=== PATIENT | male | born 1975 | race Caucasian/White ===

== ENCOUNTER 2018-03-27 17:28 | Emergency (ER) | payer OTHER ==
[~2018-03-27] VITALS: Ht 175.3 cm; Wt 76.7 kg
[~2018-03-27 17:28] MED LIST: HYDACE5 PO; IBUP600 PO; LOSA25 PO; OMEP20ER PO; PROM25 PO; [UNRECOGNIZED DRUG - OTHER] PO
[2018-03-27] MEDS ORDERED: LOSARTAN-HCTZ1 EAC1 PO (17:41)
[2018-03-27] MEDS ORDERED: Cyclobenzaprine5 MG PO (17:41)
[2018-03-27] MEDS ORDERED: PARO20 PO (17:41)
[2018-03-27] MEDS ORDERED: Prednisone10 MG PO (18:08)
== END 2018-03-27 18:12 | disposition home or self-care (01) ==
LOC: ER 17:28
DX: G56.02 Carpal tunnel syndrome, left upper limb (principal); Z88.0 Allergy status to penicillin; Z79.899 Other long term (current) drug therapy; I10 Essential (primary) hypertension
CPT/HCPCS: 99283

== ENCOUNTER 2019-01-23 10:43 | Day surgery (SDC) | payer OTHER ==
[~2019-01-23] VITALS: Ht 172.7 cm; Wt 83.6 kg
[~2019-01-23 10:43] MED LIST changes: +Amlodipine Besy10 MG; +Cyclobenzaprine5 MG PO; +ESCI20 PO; +Flexeril5 MG PO; +LOSARTAN-HCTZ1 EAC1 PO; +OMEPRAZOLE20 MG PO; +PARO20 PO; +Prednisone10 MG PO
--- NOTE | 2019-01-23 15:11 | NUR ---
01/23/19 1511 Camila Armenta LATE ENTRY FOR TODAY DURING PROCEDURE PATIENT GIVEN 1ST DOSE OF 40MG PROPOFOL AND PATIENT STARTED TWITCHING, 2ND DOSE OF 40MG PROPOFOL GIVEN, TWITCHING/LEG JERKING CONTINUED, 3RD DOSE OF 20MG PROPOFOL GIVEN AND PATIENT CONTINUES TO TWITCH AND JERK BOTH ARMS AND LEGS, ARCHES BACK. RN BEGAN TO REBOLUS PATIENT WITH 40MG PROPOFOL REQUESTS 2MG VERSED IV. 2MG VERSED IV GIVEN. PATIENT CONTINUES TO TWITCH, ARCH HIS BACK, AND KICK HIS LEGS. DR. SINGH STARTS EGD AND GETS TO THE PATIENTS STOMACH WHEN THE PATIENT STARTS TO OBSTRUCT. DR. SINGH REMOVED SCOPE, PATIENT HAD ALSO RECEIVED ANOTHER DOSE OF PROPOFOL 40MG. PATIENT THEN BEGINS TO HAVE LARYNGOSPASMS, 100MG LIDOCAINE 2% IV GIVEN. NO CHANGE IN LARYNGOSPASMS. RN CALLED OUT FOR ANESTHESIA TO HELP. DR. ROSE AND CODI RN INTO ROOM, NONREBREATHER MASK PLACED ON PATIENT, DR. ROSE TAKES OVER JAW THRUST. PATIENT SUCTION OF COPIOUS AMOUNTS OF CLEAR SPUTUM. DR. ESPINAL IN TO TAKE OVER FOR DR. ROSE, DR. SINGH AND DR. ESPINAL AGREE THAT PATIENT SHOULD BE RESCHEDULED WITH AN ANETHESIOLOGIST. DR. ESPINAL REQUEST FLUMAZENIL TO BE GIVEN TO PATIENT. PATIENT THEN BEGAN COUGHING AND VOMITED, WHAT APPEARED TO BE GREEN SPUTUM. PATIENT SUCTIONED. PATIENT TAKES APPROXIMATELY 5 MINUTES TO WAKE UP ENOUGHT TO RESPOND TO THE STAFF. VITAL SIGNS ARE STABLE, AIRWAY IS PATENT, PATIENT IS BREATHING ON OWN WITH SATS AT 96% ON RA. PATIENT MOVED TO PREOP ROOM FOR DISCHARGE.
== END 2019-01-23 13:57 | disposition home or self-care (01) ==
LOC: ORSCSDS 10:43
PROVIDERS: Internal Medicine Gastroenterology
PROC: 0DJ08ZZ Inspection of Upper Intestinal Tract, Via Natural or Artificial Opening Endoscopic (ICD-10-PCS; principal; 2019-01-23 12:00)
DX: R13.10 Dysphagia, unspecified (principal); R11.2 Nausea with vomiting, unspecified; I10 Essential (primary) hypertension; F41.8 Other specified anxiety disorders; R10.13 Epigastric pain; K22.2 Esophageal obstruction; K44.9 Diaphragmatic hernia without obstruction or gangrene; Z79.899 Other long term (current) drug therapy
CPT/HCPCS: J2250; J2704; J7120

== ENCOUNTER 2019-08-02 16:00 | Emergency (ER) | payer OTHER ==
[~2019-08-02] VITALS: Ht 172.7 cm; Wt 75.8 kg
[~2019-08-02 16:00] MED LIST changes: -Cipro500 MG PO
[2019-08-02] MEDS ORDERED: Cipro500 MG PO (16:43)
== END 2019-08-02 17:17 | disposition home or self-care (01) ==
LOC: ER 16:00
DX: R19.7 Diarrhea, unspecified (principal); D72.829 Elevated white blood cell count, unspecified; I10 Essential (primary) hypertension; Z88.0 Allergy status to penicillin; Z79.899 Other long term (current) drug therapy
CPT/HCPCS: 99283; A9270

== ENCOUNTER → 2019-08-02 | Outpatient (CLI) | payer OTHER ==
[~2019-08-02] MED LIST changes: +AMLODIPINE BESYL5 MG PO; +Cipro500 MG PO
[2019-08-02 14:50] LABS: BASOPHILS ABSOLUTE AUTO 0.14 K/mm3 (0.00-0.23); BASOPHILS PERCENT AUTO 1 % (0-2); EOSINOPHILS PERCENT AUTO 9 % (0-6); Hemoglobin 16.2 g/dL (13.5-17.5); IMMATURE GRAN ABSOLUTE AUTO 2.41 K/mm3 (0.00-0.10); IMMATURE GRAN PERCENT AUTO 10 % (0-1); LYMPHOCYTES PERCENT AUTO 12 % (21-46); MONOCYTES ABSOLUTE AUTO 1.88 K/mm3 (0.16-1.47); MONOCYTES PERCENT AUTO 8 % (4-13); Mean Corpuscular Volume 86 fL (80-100); Mean Platelet Volume 9.6 fL (9.1-12.4); NEUTROPHILS ABSOLUTE AUTO 15.29 K/mm3 (1.96-9.15); NEUTROPHILS PERCENT AUTO 61 % (41-73); Platelet Count 349 K/mm3 (150-400); RDW Coefficient Variation 12.4 % (11.7-14.2); RDW Standard Deviation 38.5 fL (35.1-46.3); Red Blood Cell Count 5.22 M/mm3 (4.30-5.90); White Blood Cell Count 25.02 K/mm3 (4.00-11.30)
[2019-08-02 15:05] LABS: Alanine Aminotransfer (ALT/SGP 11 U/L (12-78); Albumin, Blood 3.4 g/dL (3.4-5.0); Albumin/Globulin Ratio 0.8 (0.8-1.8); Alk Phos 140 U/L (40-126); Anion Gap 14 mmol/L (6-16); Aspartate Aminotrans (AST/SGOT 10 U/L (12-37); Bilirubin, Total 0.4 mg/dL (0.1-1.0); Blood Urea Nitrogen 13 mg/dL (8-24); Bun/Creatinine Ratio 10.3 (12.0-20.0); CO2, Blood 21 mmol/L (21-32); Calcium, Blood 8.6 mg/dL (8.5-10.1); Chloride, Blood 104 mmol/L (98-108); Creatinine, Blood 1.26 mg/dL (0.60-1.20); Globulin, Blood 4.3 g/dL (2.2-4.0); Glomerular Filtration Rate >60 (60-); Glucose, Blood 127 mg/dL (70-99); Potassium, Blood 3.1 mmol/L (3.5-5.5); Sodium, Blood 139 mmol/L (136-145); Total Protein, Blood 7.7 g/dL (6.4-8.2); Uric Acid, Blood 10.9 mg/dL (3.5-7.2)
[2019-08-02 16:10] LABS: TOTAL CELLS COUNTED 100
== END | disposition home or self-care (01) ==
LOC: LAB EV 14:41 → LAB SHORT 14:41
PROVIDERS: Physician Assistant
DX: M25.572 Pain in left ankle and joints of left foot (principal); R06.00 Dyspnea, unspecified; R19.7 Diarrhea, unspecified
CPT/HCPCS: 80053; 83690; 84550; 85025; 85379

== ENCOUNTER 2021-01-17 16:48 | Emergency (ER) | payer OTHER ==
[~2021-01-17] VITALS: Ht 175.3 cm; Wt 77.1 kg
[~2021-01-17 16:48] MED LIST changes: +Cipro500 MG PO; -ESCI20 PO; -Flexeril5 MG PO
[2021-01-17 17:59] LABS: Base Excess Venous -1.8 mmol/L; Bicarbonate Venous 22.2 mmol/L (24.0-30.0); PCO2 Venous 47.8 mmHg (38-42); PO2 Venous 45.9 mmHg (38-42); pH Blood Venous 7.32 (7.34-7.37)
[2021-01-17 18:06] LABS: BASOPHILS ABSOLUTE AUTO 0.08 K/mm3 (0.00-0.23); BASOPHILS PERCENT AUTO 1 % (0-2); EOSINOPHILS ABSOLUTE AUTO 0.23 K/mm3 (0.00-0.68); EOSINOPHILS PERCENT AUTO 2 % (0-6); Hematocrit 38.8 % (37.0-53.0); Hemoglobin 14.1 g/dL (13.5-17.5); IMMATURE GRAN ABSOLUTE AUTO 0.06 K/mm3 (0.00-0.10); IMMATURE GRAN PERCENT AUTO 1 % (0-1); LYMPHOCYTES ABSOLUTE AUTO 2.34 K/mm3 (0.84-5.20); LYMPHOCYTES PERCENT AUTO 18 % (21-46); MONOCYTES ABSOLUTE AUTO 0.54 K/mm3 (0.16-1.47); MONOCYTES PERCENT AUTO 4 % (4-13); Mean Corpuscular HGB 32.9 pg (26.0-34.0); Mean Corpuscular HGB Conc 36.3 g/dL (31.5-36.5); Mean Corpuscular Volume 90 fL (80-100); Mean Platelet Volume 11.7 fL (9.1-12.4); NEUTROPHILS ABSOLUTE AUTO 9.63 K/mm3 (1.96-9.15); NEUTROPHILS PERCENT AUTO 75 % (41-73); Platelet Count 274 K/mm3 (150-400); RDW Coefficient Variation 11.1 % (11.7-14.2); RDW Standard Deviation 37.1 fL (35.1-46.3); Red Blood Cell Count 4.29 M/mm3 (4.30-5.90); White Blood Cell Count 12.88 K/mm3 (4.00-11.30)
[2021-01-17 18:24] LABS: Albumin, Blood 3.5 g/dL (3.4-5.0); Albumin/Globulin Ratio 0.8 (0.8-1.8); Bilirubin, Total 0.6 mg/dL (0.1-1.0); Bun/Creatinine Ratio 19.7 (12.0-20.0); Calcium, Blood 9.2 mg/dL (8.5-10.1); Creatinine, Blood 1.83 mg/dL (0.60-1.20); Globulin, Blood 4.4 g/dL (2.2-4.0); Potassium, Blood 3.8 mmol/L (3.5-5.5); Total Protein, Blood 7.9 g/dL (6.4-8.2)
[2021-01-17 20:01] LABS: Source, Urine Clean Catch
[2021-01-17 20:06] LABS: Appearance, Urine Clear (Clear); Bilirubin, Urine Neg (Neg); Blood, Urine Neg (Neg); Glucose Qualitative, Urine 4+ (Neg); Ketones, Urine Neg (Neg); Leukocyte Esterase, Urine Neg (Neg); Nitrite, Urine Neg (Neg); Protein, Urine Neg (Neg); Specific Gravity, Urine 1.005 (1.003-1.022); Urobilinogen, Urine NORM (Normal)
[2021-01-17 20:18] LABS: Color, Urine Pale Yellow (P-Yellow)
[2021-01-17] MEDS ORDERED: ESCI20 PO (20:41)
[2021-01-17] MEDS ORDERED: ZESTRIL40 M1 PO (20:41)
[2021-01-17] MEDS ORDERED: CHLO25B PO (20:42)
[2021-01-17] MEDS ORDERED: CYCL10 PO (20:42)
[2021-01-17 20:59] LABS: Glucose, Blood 552 mg/dL (70-99)
[2021-01-17] MEDS ORDERED: METF500 PO (21:40)
== END 2021-01-17 21:57 | disposition home or self-care (01) ==
LOC: ER 16:48
PROVIDERS: Physician Assistant; Student in an Organized Health Care Education/Training Program
DX: E11.65 Type 2 diabetes mellitus with hyperglycemia (principal); N17.9 Acute kidney failure, unspecified; I10 Essential (primary) hypertension; Z88.0 Allergy status to penicillin; Z79.899 Other long term (current) drug therapy
CPT/HCPCS: 36415; 80053; 81003; 82010; 82803; 82947; 83036; 85025; 93005; 93010; 99284-25; J1815; J7030

== ENCOUNTER 2024-09-19 18:29 | Emergency (ER) | payer OTHER ==
[~2024-09-19] VITALS: Ht 175.3 cm; Wt 72.6 kg
[~2024-09-19 18:29] MED LIST changes: +CHLO25B PO; +CYCL10 PO; +ESCI20 PO; +METF500 PO; +ZESTRIL40 M1 PO
[2024-09-19 19:18] LABS: BASOPHILS ABSOLUTE AUTO 0.05 K/mm3 (0.00-0.23); BASOPHILS PERCENT AUTO 1 % (0-2); EOSINOPHILS ABSOLUTE AUTO 0.22 K/mm3 (0.00-0.68); EOSINOPHILS PERCENT AUTO 4 % (0-6); Hematocrit 39.4 % (37.0-53.0); Hemoglobin 14.6 g/dL (13.5-17.5); IMMATURE GRAN ABSOLUTE AUTO 0.01 K/mm3 (0.00-0.10); IMMATURE GRAN PERCENT AUTO 0 % (0-1); LYMPHOCYTES ABSOLUTE AUTO 1.90 K/mm3 (0.84-5.20); LYMPHOCYTES PERCENT AUTO 30 % (21-46); MONOCYTES ABSOLUTE AUTO 0.80 K/mm3 (0.16-1.47); MONOCYTES PERCENT AUTO 13 % (4-13); Mean Corpuscular HGB Conc 37.1 g/dL (31.5-36.5); Mean Corpuscular Volume 83 fL (80-100); NEUTROPHILS ABSOLUTE AUTO 3.35 K/mm3 (1.96-9.15); NEUTROPHILS PERCENT AUTO 53 % (41-73); NRBC ABSOLUTE 0.00 K/mm3 (0.00-0.02); NRBC Auto 0.0 /100 WBC (0.0-0.2); Platelet Count 281 K/mm3 (150-400); RDW Coefficient Variation 13.1 % (11.7-14.2); RDW Standard Deviation 39.1 fL (35.1-46.3)
[2024-09-19 19:49] LABS: Alanine Aminotransfer (ALT/SGP 22.0 U/L (12-78); Albumin, Blood 4.2 g/dL (3.4-5.0); Albumin/Globulin Ratio 1.0 (0.8-1.8); Anion Gap 11.0 mmol/L (3-11); Aspartate Aminotrans (AST/SGOT 34.0 U/L (12-37); Bilirubin, Total 1.9 mg/dL (0.1-1.0); Blood Urea Nitrogen 22.0 mg/dL (8-24); CO2, Blood 23.0 mmol/L (21-32); Calcium, Blood 10.7 mg/dL (8.5-10.1); Chloride, Blood 105.0 mmol/L (98-108); Creatinine, Blood 1.76 mg/dL (0.60-1.20); Globulin, Blood 4.2 g/dL (2.2-4.0); Glucose, Blood 154.0 mg/dL (70-99); Potassium, Blood 3.7 mmol/L (3.5-5.5); Sodium, Blood 135.0 mmol/L (136-145); Total Protein, Blood 8.4 g/dL (6.4-8.2)
[2024-09-19] MEDS ORDERED: NS 1,000 ML IV SCH (22:40)
[2024-09-20 02:00] VITALS: BP 127/81
== END 2024-09-20 02:15 | disposition home or self-care (01) ==
LOC: ER 18:29
PROVIDERS: Student in an Organized Health Care Education/Training Program
DX: N17.9 Acute kidney failure, unspecified (principal); R07.9 Chest pain, unspecified; I95.9 Hypotension, unspecified; Z79.84 Long term (current) use of oral hypoglycemic drugs; Z79.899 Other long term (current) drug therapy; Z88.0 Allergy status to penicillin
CPT/HCPCS: 71046; 80053; 83690; 84484; 85025; 85379; 93005; 93010; 99285-25; J7030